=== PATIENT | male | born 1945 | race Caucasian/White ===

== ENCOUNTER 2023-11-14 14:26 | Inpatient (IN) | payer MEDICARE, OTHER ==
[~2023-11-14] VITALS: Ht 162.6 cm; Wt 52.2 kg
[2023-11-14 15:39] LABS: BASOPHILS # (AUTO) 0.1 K/uL (0.0-0.2); BASOPHILS % (AUTO) 0.9 % (0.0-2.0); EOSINOPHILS # (AUTO) 0.4 K/uL (0.0-0.7); EOSINOPHILS % (AUTO) 2.7 % (0.0-6.0); HEMATOCRIT 27 % (39-51); HEMOGLOBIN 8.5 g/dL (13.5-17.5); LYMPHOCYTES # (AUTO) 1.8 K/uL (0.8-4.8); LYMPHOCYTES % (AUTO) 11.2 % (20.0-44.0); MEAN CORPUSCULAR HEMOGLOBIN 30 PG (26.0-33.0); MEAN CORPUSCULAR HGB CONC 32 g/dl (31.0-36.0); MEAN CORPUSCULAR VOLUME 93 fL (80-96); MONOCYTES # (AUTO) 1.2 K/uL (0.1-1.30); MONOCYTES % (AUTO) 7.4 % (2.0-12.0); NEUTROPHILS # (AUTO) 12.2 K/uL (1.8-8.9); NEUTROPHILS % (AUTO) 77.8 % (43.0-81.0); PLATELET COUNT (AUTO) 485 K/uL (150-450); RED BLOOD CELL COUNT(AUTO) 2.85 MIL/uL (4.5-6.0); RED CELL DISTRIBUTION WIDTH 14.9 % (11.5-15.0); WHITE BLOOD COUNT (AUTO) 15.7 K/uL (4.3-11.0)
[2023-11-14 15:46] LABS: CALCIUM, SERUM 8.5 mg/dL (8.5-10.1); CARBON DIOXIDE 23 mmol/L (21-32); CHLORIDE 103 mmol/L (98-107); GLUCOSE 243 mg/dL (74-106); POTASSIUM 3.6 mmol/L (3.5-5.1); SODIUM SERUM 134 mmol/L (136-145); UREA NITROGEN, BLOOD 24 mg/dL (7-18)
[2023-11-14 15:52] LABS: ALANINE AMINOTRANSFERASE 36 U/L (12-78); ALBUMIN 2.2 g/dL (3.4-5.0); ALKALINE PHOSPHATASE 196 U/L (46-116); ASPARTATE AMINOTRANSFERASE 37 U/L (15-37); BILIRUBIN,DIRECT 0.1 mg/dL (0.0-0.2); BILIRUBIN,TOTAL 0.3 mg/dL (0.2-1.0); LIPASE 36 U/L (16-77); TOTAL PROTEIN, SERUM 7.2 g/dL (6.4-8.2)
[2023-11-14] MEDS ORDERED: IOHEXOL-300 100 ML VIAL IV ONE (16:14)
[2023-11-14] MEDS ORDERED: IV NS 0.9% 250 ML IV ONE (16:15)
[2023-11-14] MEDS ORDERED: TRAM50TA2 PO (16:17)
[2023-11-14] MEDS ORDERED: COLE625T14 PO (16:17)
[2023-11-14] MEDS ORDERED: GABA-532 PO (16:17)
[2023-11-14] MEDS ORDERED: GLIP10TA11 PO (16:17)
[2023-11-14] MEDS ORDERED: INSU100V39 SQ (16:17)
[2023-11-14] MEDS ORDERED: GLUC1KIT IM (16:17)
[2023-11-14] MEDS ORDERED: ASPI-1169 PO (16:17)
[2023-11-14] MEDS ORDERED: DAPA10TA PO (16:17)
[2023-11-14] MEDS ORDERED: SACU1TAB PO (16:17)
[2023-11-14] MEDS ORDERED: OMEP20CA15 PO (16:17)
[2023-11-14] MEDS ORDERED: PETR113O TP (16:17)
[2023-11-14] MEDS ORDERED: METO25TA4 PO (16:17)
[2023-11-14] MEDS ORDERED: TICA90TA PO (16:17)
[2023-11-14] MEDS ORDERED: XEROFORM TP (16:17)
[2023-11-14] MEDS ORDERED: INSU100V7 SQ (16:17)
[2023-11-14] MEDS ORDERED: AMLO5TAB4 PO (16:17)
[2023-11-14] MEDS ORDERED: ACET-868 PO (16:17)
[2023-11-14] MEDS ORDERED: MELA5TAB PO (16:17)
[2023-11-14] MEDS ORDERED: ATOR40TA PO (16:17)
[2023-11-14] MEDS ORDERED: TAMS-12 PO (16:17)
[2023-11-14 16:50] LABS: APPEARANCE,URINE Turbid (CLEAR); BILIRUBIN,URINE Negative (NEGATIVE); BLOOD, URINE Moderate Ery/uL (NEGATIVE); COLOR,URINE Other (YELLOW); KETONES,URINE Negative (NEGATIVE); LEUKOCYTE ESTERASE ,URINE Trace (NEGATIVE); NITRITE, URINE Negative (NEGATIVE); PROTEIN,URINE 30 mg/dl (NEGATIVE); UGLUCOSE 500 MG/DL mg/dL (NEGATIVE); UROBILINOGEN,URINE 0.2 EU/dL (0.2)
[2023-11-14] MEDS: CEFTRIAXONE 1GM BAG (ER ONLY) 50 ML IV ONE (17:00)
[2023-11-14 17:19] LABS: ADD URINE CULTURE YES; BACTERIA,URINE Many /HPF (None Seen); WBC,URINE 21-50 /HPF (0-3)
[2023-11-14 17:20] LABS: SQUAMOUS EPITHELIAL CELL,UR Moderate /HPF (None Seen)
[2023-11-14] MEDS: CEFTRIAXONE 1 G in IV D5W 50 ML IV ONE (17:30)
[2023-11-14] MEDS: VANCOMYCIN 1 GM in IV D5W 250 ML IV ONE (18:35)
[2023-11-14] MEDS ORDERED: TRAMADOL HCL 50 MG TABLET PO PRN (22:30)
[2023-11-14] MEDS ORDERED: DEXTROSE 50%-WATER 50 ML DISP.SYRIN IV PRN (22:30)
[2023-11-14] MEDS ORDERED: ACETAMINOPHEN 325 MG TABLET PO PRN (22:30)
[2023-11-14] MEDS ORDERED: ONDANSETRON HCL/PF 4 MG/2 ML VIAL IVP PRN (22:30)
[2023-11-14 22:58] VITALS: BP 125/66; TEMP 97.7; O2SAT 100
[2023-11-14] MEDS: GABAPENTIN 100 MG CAPSULE PO SCH (23:25)
[2023-11-14] MEDS: ATORVASTATIN 40 MG TABLET PO SCH (23:25)
[2023-11-14] MEDS: INSULIN GLARGINE, 100 UNIT/ML CARTRIDGE SQ SCH (23:35)
[2023-11-14] MEDS: IV NS 0.9% 1,000 ML IV PRN (23:44)
[2023-11-15] VITALS: BP 128/59; TEMP 97.5; O2SAT 100
[2023-11-15 04:00] VITALS: BP 127/67; TEMP 98.6; O2SAT 97
[2023-11-15] MEDS: BLOOD SUGAR DIAGNOSTIC 1 EACH STRIP VI SCH (06:45)
[2023-11-15] MEDS: INSULIN REGULAR, HUMAN 100 UNIT/ML 3 ML VIAL SQ PRN (06:48)
[2023-11-15 07:02] LABS: BASOPHILS # (AUTO) 0.1 K/uL (0.0-0.2); BASOPHILS % (AUTO) 0.4 % (0.0-2.0); EOSINOPHILS # (AUTO) 0.3 K/uL (0.0-0.7); EOSINOPHILS % (AUTO) 1.9 % (0.0-6.0); HEMATOCRIT 28 % (39-51); HEMOGLOBIN 9.3 g/dL (13.5-17.5); LYMPHOCYTES # (AUTO) 1.5 K/uL (0.8-4.8); LYMPHOCYTES % (AUTO) 9.8 % (20.0-44.0); MEAN CORPUSCULAR HEMOGLOBIN 31 PG (26.0-33.0); MEAN CORPUSCULAR HGB CONC 33 g/dl (31.0-36.0); MEAN CORPUSCULAR VOLUME 93 fL (80-96); MONOCYTES # (AUTO) 1.2 K/uL (0.1-1.30); MONOCYTES % (AUTO) 7.4 % (2.0-12.0); NEUTROPHILS # (AUTO) 12.6 K/uL (1.8-8.9); NEUTROPHILS % (AUTO) 80.5 % (43.0-81.0); PLATELET COUNT (AUTO) 532 K/uL (150-450); RED BLOOD CELL COUNT(AUTO) 2.98 MIL/uL (4.5-6.0); RED CELL DISTRIBUTION WIDTH 14.8 % (11.5-15.0); WHITE BLOOD COUNT (AUTO) 15.7 K/uL (4.3-11.0)
[2023-11-15] MEDS: TICAGRELOR 90 MG TABLET PO SCH (07:30)
[2023-11-15 07:34] LABS: CALCIUM, SERUM 8.9 mg/dL (8.5-10.1); CARBON DIOXIDE 23 mmol/L (21-32); CHLORIDE 102 mmol/L (98-107); GLUCOSE 224 mg/dL (74-106); MAGNESIUM 2.1 mg/dL (1.8-2.4); PHOSPHORUS 3.3 mg/dL (2.5-4.9); POTASSIUM 3.8 mmol/L (3.5-5.1); SODIUM SERUM 135 mmol/L (136-145); UREA NITROGEN, BLOOD 15 mg/dL (7-18)
[2023-11-15 08:00] VITALS: BP 123/67; TEMP 98.2; O2SAT 96
[2023-11-15 08:01] LABS: CHOLESTEROL 111 mg/dL (<200); HDL CHOLESTEROL 62 mg/dL (40-60); LDL 37 mg/dL (0-99); TRIGLYCERIDES 106 mg/dL (30-150)
[2023-11-15] MEDS: PANTOPRAZOLE 40 MG TABLET.DR PO SCH (08:13)
[2023-11-15] MEDS: AMLODIPINE BESYLATE 5 MG TABLET PO SCH (08:13)
[2023-11-15] MEDS: TAMSULOSIN 0.4 MG CAP.SR.24H PO SCH (08:13)
[2023-11-15] MEDS: METOPROLOL SUCCINATE 25 MG TAB.SR.24H PO SCH (08:13)
[2023-11-15] MEDS: ASPIRIN 81 MG TAB.CHEW PO SCH (08:13)
[2023-11-15] MEDS: DAPAGLIFLOZIN PROPANEDIOL 5 MG TABLET PO SCH (09:17)
[2023-11-15 09:23] LABS: FREE PSA 1.59 ng/mL (0.00-45); PROSTATE SPECIFIC ANTIGEN SCR 29.51 ng/mL (0.00-4.00)
[2023-11-15] MEDS: VANCOMYCIN 750 MG in IV D5W 250 ML IV SCH (10:31)
[2023-11-15 12:00] VITALS: BP 104/49; TEMP 98.6; O2SAT 97
[2023-11-15] MEDS: MORPHINE SULFATE INJ 2 MG/ML DISP.SYRIN IV STA (15:26)
[2023-11-15 16:01] VITALS: BP 126/65; TEMP 98.6; O2SAT 99
[2023-11-15 20:00] VITALS: BP 104/57; TEMP 98.6; O2SAT 98
[2023-11-15] MEDS ORDERED: CEFTRIAXONE 1 G in IV D5W 50 ML IV SCH (21:00)
[2023-11-15] MEDS: *INSULIN REGULAR(HUMULIN R)HUM 100 UNIT/ML VIAL SQ PRN (21:57)
[2023-11-15] MEDS: CEFEPIME 1 GM in IV D5W 50 ML IV SCH (21:59)
[2023-11-16] VITALS: BP 124/56; TEMP 98.4; O2SAT 96
[2023-11-16 04:00] VITALS: BP 116/56; TEMP 97.6; O2SAT 97
[2023-11-16 06:21] LABS: BASOPHILS # (AUTO) 0.2 K/uL (0.0-0.2); BASOPHILS % (AUTO) 1.2 % (0.0-2.0); EOSINOPHILS # (AUTO) 0.3 K/uL (0.0-0.7); EOSINOPHILS % (AUTO) 2.3 % (0.0-6.0); HEMATOCRIT 25 % (39-51); HEMOGLOBIN 8.3 g/dL (13.5-17.5); LYMPHOCYTES # (AUTO) 1.4 K/uL (0.8-4.8); LYMPHOCYTES % (AUTO) 9.6 % (20.0-44.0); MEAN CORPUSCULAR HEMOGLOBIN 30 PG (26.0-33.0); MEAN CORPUSCULAR HGB CONC 33 g/dl (31.0-36.0); MEAN CORPUSCULAR VOLUME 92 fL (80-96); MONOCYTES # (AUTO) 0.9 K/uL (0.1-1.30); MONOCYTES % (AUTO) 6.3 % (2.0-12.0); NEUTROPHILS # (AUTO) 11.8 K/uL (1.8-8.9); NEUTROPHILS % (AUTO) 80.6 % (43.0-81.0); PLATELET COUNT (AUTO) 504 K/uL (150-450); RED BLOOD CELL COUNT(AUTO) 2.72 MIL/uL (4.5-6.0); WHITE BLOOD COUNT (AUTO) 14.7 K/uL (4.3-11.0)
[2023-11-16 06:52] LABS: ALBUMIN 1.9 g/dL (3.4-5.0); BILIRUBIN,TOTAL 0.4 mg/dL (0.2-1.0); CALCIUM, SERUM 8.5 mg/dL (8.5-10.1); CREATININE 0.9 mg/dL (0.6-1.3); MAGNESIUM 2.1 mg/dL (1.8-2.4); PHOSPHORUS 3.3 mg/dL (2.5-4.9); POTASSIUM 3.3 mmol/L (3.5-5.1); TOTAL PROTEIN, SERUM 6.9 g/dL (6.4-8.2)
[2023-11-16 08:00] VITALS: BP 112/59; TEMP 98.8; O2SAT 97
[2023-11-16] MEDS: SACUBITRIL/VALSARTAN 1 EACH TABLET PO SCH (08:39)
[2023-11-16] MEDS: POTASSIUM CHLORIDE 20 MEQ TAB.PRT.SR PO ONE (10:49)
[2023-11-16 16:00] VITALS: BP 98/54; TEMP 98.3; O2SAT 98
[2023-11-16] MEDS: COLESEVELAM HCL 625 MG PO SCH (18:27)
[2023-11-16] MEDS: MORPHINE SULFATE INJ 4 MG/ML DISP.SYRIN IV PRN (19:25)
[2023-11-16] MEDS: MORPHINE SULFATE INJ 2 MG/ML DISP.SYRIN IV STA (19:26)
[2023-11-16] MEDS: LIDOCAINE 1% INJ 50 ML MDV IJ ONE (19:45)
[2023-11-16 20:00] VITALS: BP 123/60; TEMP 98; O2SAT 98
[2023-11-17 04:00] VITALS: BP 118/70; TEMP 98.6; O2SAT 98
[2023-11-17 07:31] LABS: BASOPHILS # (AUTO) 0.1 K/uL (0.0-0.2); BASOPHILS % (AUTO) 0.5 % (0.0-2.0); EOSINOPHILS # (AUTO) 0.3 K/uL (0.0-0.7); EOSINOPHILS % (AUTO) 2.4 % (0.0-6.0); HEMATOCRIT 28 % (39-51); LYMPHOCYTES # (AUTO) 1.8 K/uL (0.8-4.8); LYMPHOCYTES % (AUTO) 13.4 % (20.0-44.0); MEAN CORPUSCULAR HEMOGLOBIN 31 PG (26.0-33.0); MEAN CORPUSCULAR HGB CONC 33 g/dl (31.0-36.0); MEAN CORPUSCULAR VOLUME 93 fL (80-96); MONOCYTES # (AUTO) 0.9 K/uL (0.1-1.30); MONOCYTES % (AUTO) 6.9 % (2.0-12.0); NEUTROPHILS # (AUTO) 10.5 K/uL (1.8-8.9); NEUTROPHILS % (AUTO) 76.8 % (43.0-81.0); PLATELET COUNT (AUTO) 516 K/uL (150-450); RED BLOOD CELL COUNT(AUTO) 2.94 MIL/uL (4.5-6.0); WHITE BLOOD COUNT (AUTO) 13.7 K/uL (4.3-11.0)
[2023-11-17 08:00] VITALS: BP 111/65; TEMP 98.6; O2SAT 98
[2023-11-17 08:22] LABS: BILIRUBIN,TOTAL 0.4 mg/dL (0.2-1.0); CALCIUM, SERUM 8.7 mg/dL (8.5-10.1); CREATININE 0.9 mg/dL (0.6-1.3); MAGNESIUM 2.2 mg/dL (1.8-2.4); PHOSPHORUS 3.5 mg/dL (2.5-4.9); POTASSIUM 3.8 mmol/L (3.5-5.1); TOTAL PROTEIN, SERUM 7.2 g/dL (6.4-8.2)
[2023-11-17 16:00] VITALS: BP 106/60; TEMP 97.7; O2SAT 99
[2023-11-17] MEDS: ARGININE/GLUTAMINE/CALCIUM BMB 1 EACH POWD.PACK PO SCH (16:53)
[2023-11-17] MEDS: PROSOURCE / PROSTAT (PYXIS) 30 ML UDC PO SCH (16:53)
[2023-11-17 20:00] VITALS: BP 131/66; TEMP 97.5; O2SAT 98
[2023-11-18 04:00] VITALS: BP 111/55; TEMP 98.1; O2SAT 98
[2023-11-18 07:17] LABS: BASOPHILS # (AUTO) 0.1 K/uL (0.0-0.2); BASOPHILS % (AUTO) 0.5 % (0.0-2.0); EOSINOPHILS # (AUTO) 0.3 K/uL (0.0-0.7); EOSINOPHILS % (AUTO) 2.1 % (0.0-6.0); HEMATOCRIT 29 % (39-51); HEMOGLOBIN 9.4 g/dL (13.5-17.5); LYMPHOCYTES # (AUTO) 2.1 K/uL (0.8-4.8); MEAN CORPUSCULAR HEMOGLOBIN 32 PG (26.0-33.0); MEAN CORPUSCULAR HGB CONC 33 g/dl (31.0-36.0); MEAN CORPUSCULAR VOLUME 96 fL (80-96); MONOCYTES % (AUTO) 6.7 % (2.0-12.0); NEUTROPHILS # (AUTO) 11.4 K/uL (1.8-8.9); NEUTROPHILS % (AUTO) 76.7 % (43.0-81.0); PLATELET COUNT (AUTO) 539 K/uL (150-450); RED BLOOD CELL COUNT(AUTO) 2.97 MIL/uL (4.5-6.0); WHITE BLOOD COUNT (AUTO) 14.9 K/uL (4.3-11.0)
[2023-11-18 08:00] VITALS: BP 101/55; TEMP 98.8; O2SAT 99
[2023-11-18 08:27] LABS: ALBUMIN 2.1 g/dL (3.4-5.0); BILIRUBIN,TOTAL 0.4 mg/dL (0.2-1.0); CALCIUM, SERUM 9.1 mg/dL (8.5-10.1); CREATININE 0.9 mg/dL (0.6-1.3); MAGNESIUM 2.3 mg/dL (1.8-2.4); PHOSPHORUS 3.6 mg/dL (2.5-4.9); TOTAL PROTEIN, SERUM 7.5 g/dL (6.4-8.2)
[2023-11-18] MEDS: ZINC SULFATE 220 MG CAPSULE PO SCH (08:35)
[2023-11-18] MEDS: MULTIVIT W/MINERALS 1 TAB TABLET PO SCH (08:35)
[2023-11-18 16:00] VITALS: BP 96/50; TEMP 99; O2SAT 98
[2023-11-18 20:00] VITALS: BP 122/65; TEMP 98.2; O2SAT 97
[2023-11-18] MEDS ORDERED: MEROPENEM 1 G VIAL IV ONE (21:57)
[2023-11-18] MEDS: MEROPENEM 1 G in IV NS 0.9% 100 ML IV SCH (22:04)
[2023-11-19 04:00] VITALS: BP 108/53; TEMP 98.4; O2SAT 98
[2023-11-19] MEDS ORDERED: MEROPENEM 1 G VIAL IV ONE (05:11)
[2023-11-19 08:00] VITALS: BP 105/76; TEMP 97.5; O2SAT 98
[2023-11-19 16:00] VITALS: BP 108/52; TEMP 97.5; O2SAT 96
[2023-11-19] MEDS ORDERED: MEROPENEM 1 G in IV NS 0.9% 100 ML IV SCH (17:00)
== END 2023-11-19 16:25 | DRG 673 ==
LOC: ER 14:41 → TELE1 19:25 → MEDSG1 11-15 14:55
PROVIDERS: ADMIT Nurse Practitioner Acute Care
PROC: 0JBC0ZZ Excision of Pelvic Region Subcutaneous Tissue and Fascia, Open Approach (ICD-10-PCS; principal; 2023-11-16)
PROC: 0VNTXZZ Release Prepuce, External Approach (ICD-10-PCS; 2023-11-16)
DX: T83.61XA Infection and inflammatory reaction due to implanted penile prosthesis, initial encounter (principal); A41.9 Sepsis, unspecified organism; E44.0 Moderate protein-calorie malnutrition; N39.0 Urinary tract infection, site not specified; I96 Gangrene, not elsewhere classified; Z16.24 Resistance to multiple antibiotics; Z86.73 Personal history of transient ischemic attack (TIA), and cerebral infarction without residual deficits; N32.0 Bladder-neck obstruction; N47.2 Paraphimosis; D64.9 Anemia, unspecified; B96.20 Unspecified Escherichia coli [E. coli] as the cause of diseases classified elsewhere; E88.09 Other disorders of plasma-protein metabolism, not elsewhere classified; Z79.4 Long term (current) use of insulin; Z96.0 Presence of urogenital implants; I10 Essential (primary) hypertension; Y83.8 Other surgical procedures as the cause of abnormal reaction of the patient, or of later complication, without mention of misadventure at the time of the procedure; Y92.129 Unspecified place in nursing home as the place of occurrence of the external cause; N40.1 Benign prostatic hyperplasia with lower urinary tract symptoms; Z79.84 Long term (current) use of oral hypoglycemic drugs; Z20.822 Contact with and (suspected) exposure to COVID-19; E11.9 Type 2 diabetes mellitus without complications
CPT/HCPCS: 36415; 80048-TC; 80053-TC; 80061-TC; 80076-TC; 81001; 82962-TC; 83605-TC; 83690-TC; 83735-TC; 84100-TC; 84153-TC; 84154-TC; 85025-TC; 87040-TC; 87081-TC; 87086-TC; A4223; A6253; A6403; G0378; J0692; J0696; J1815; J2185; J2270; J3370; J3371; J3490; J7030; J7050; J7060; Q9967